=== PATIENT | female | born 1975 | race Caucasian/White ===

== ENCOUNTER 2018-03-04 | Emergency (ER) | payer MEDICAID, SELFPAY ==
[2018-03-04 00:04] VITALS: BP 141/90; PULSE 82; RESP 16; TEMP 36.6; O2SAT 98
--- NOTE | 2018-03-04 00:09 | DI.RAD_ITS ---
SYMPTOM/DIAGNOSIS: PAIN, SOMEONE FELL ON HER RIGHT FOOT: Three views. No acute fracture or dislocation is identified. There is a mild hallux valgus deformity. Mild degenerative changes are seen at the first metatarsal phalangeal joint. Calcaneal spurs are present. No radiopaque foreign bodies are seen in the soft tissues. IMPRESSION: No acute fracture or dislocation. RIGHT ANKLE: Three views. No acute fracture or dislocation is identified. There are mild degenerative changes seen at the ankle. There is an enthesophyte seen at the Achilles insertion of the calcaneus.
--- NOTE | 2018-03-04 00:11 | W.ED.GENAD ---
Discharge Plan Disposition Patient Disposition: HOME Condition: Stable Discharge Details Chief Complaint: Orthopedic Clinical Impression: Right foot sprain, Right ankle sprain Primary Care Provider: Clare Jhaveri ED Provider: Mathew Carrero Home Meds and New Rx's Prescriptions: Continue sertraline 50 MG tablet 50 mg PO DAILY Qty: 30 RF: 1 melatonin 5 MG tablet 5 mg PO HS RF: 0 omeprazole 10 MG capsule,delayed release(DR/EC) 20 mg PO DIRECTED RF: 0 Discharge Instructions Instructions: Ankle Sprain (ED) Discharge Data Discharge Physician: Mathew Carrero Medical Decision Making 42 yo female was at an event in the stands when another person fell on the medial right ankle and foot, did not hit her head or have loc. Based on her exam I suspect contusion vs sprian but will xray to eval for fx/dislocation. She has full plantar and dorsiflexion so doubt tendon injury especially an injury to achilles tendon xray negative on my read, suspect foot and ankle sprain. ADvised f/u with pcp if pain continues this week and advised RICE Differential Diagnosis sprain, strain, contusion, fracture, dislocation Imaging Data Radiologic Study: Attestation: I personally reviewed and interpreted this imaging study as follows: Imaging: X-Ray My impression: no acute findings Radiologic Study #2: Attestation: I personally reviewed and interpreted this imaging study as follows: Imaging: X-Ray My impression: no acute findings HPI General Mode of arrival: ambulatory. Date/Time Provider Initiated Documentation: 03/04/18 00:09. Limitations to Documentation: no limitations. Information obtained by: patient. History of Present Illness 42 year old F presents to the emergency department with the chief complaint of right foot and ankle pain, described as moderate, with intensity rated at 6. Quality is described as aching, and is localized to the right and lower extremity. Patient reports no radiation. Patient started experiencing this hour(s) (1) and it has been constant. No relieving factors improve symptom(s), No exacerbating factors reported . Patient notes no other symptoms.. Patient did receive the following treatments prior to arrival, NSAID Related Data Home Medications Medication Instructions Recorded Confirmed melatonin 5 mg PO HS 11/13/12 03/04/18 omeprazole 20 mg PO DIRECTED 08/10/15 03/04/18 sertraline 50 mg PO DAILY #30 tab-cap 12/26/17 03/04/18 Previous Rx's Medication Instructions Recorded sertraline 50 mg PO DAILY #30 tab-cap 12/26/17 Allergies Allergy/AdvReac Type Severity Reaction Status Date / Time No Known Allergies Allergy Unverified 03/04/18 00:10 General Stated Complaint: Orthopedic SHYAM: 4 Review of Systems Review of Systems All systems reviewed & are unremarkable except as noted in HPI and below Constitutional Denies chills, Denies fever(s) and Denies weakness Eyes Denies loss of vision ENT Denies change in voice Cardiovascular Denies chest pain and Denies dyspnea Respiratory Denies dyspnea Gastrointestinal Denies abdominal pain, Denies nausea and Denies vomiting Genitourinary Denies dysuria Musculoskeletal Denies joint swelling Integumentary/Breasts Denies rash Neurologic Denies loss of vision and Denies weakness Psychiatric Denies depression Endocrine Denies cold intolerance and Denies heat intolerance Allergic/Immunologic Reports urticaria PFSH Family History Mother Typhoid Heart disease Father Heart disease Sister No problems noted. Grandmother Heart disease Medical History Tobacco use disorder (Acute) Increased BMI (body mass index) (Acute 06/19/17) Alcohol abuse, episodic (Acute 06/19/17) Social History Smoking/Tobacco Use Status: Current every day alcohol intake: current alcohol intake frequency: a few times a week substance use type: does not use seatbelt use: always Surgical History section PROCEDURES Female Reproductive History Menstrual control method: progestin IUCD Exam Const General: no acute distress Orientation: alert HENGA Head: normal to inspection Ears: external ears normal General nose exam: external nose normal Mouth: moist mucous membranes Eyes General: appearance normal, both eyes and all related structures Neck Neck: normal visual inspection Resp Effort & Inspection: normal respiratory effort and able to speak in complete sentences Cardio Rate: regular rate Skin General skin exam: no rashes or lesions noted Neuro General: alert and oriented x3 Extrem General: normal capillary refill and other (has pain over medial right ankle and foot. 2+ dp/pt pulses, full plantar and dorsiflexion, intact sensation) Psych Mental Status: mental status grossly normal Course Vital Signs Temperature 36.6 C 03/04/18 00:04 Pulse 82 03/04/18 00:04 Respiratory Rate 16 03/04/18 00:04 Blood Pressure 141/90 H 03/04/18 00:04 Pulse Oximetry 98 03/04/18 00:04 Temperature 36.6 C 03/04/18 00:04 Temperature Source Temporal Artery Scan 03/04/18 00:04 Pulse 82 03/04/18 00:04 Respiratory Rate 16 03/04/18 00:04 Respiratory Effort 03/04/18 00:08 Blood Pressure 141/90 H 03/04/18 00:04 Pulse Oximetry 98 03/04/18 00:04 Oxygen Delivery Method Room Air 03/04/18 00:04 Oxygen Flow Rate 0 03/04/18 00:04 Pain Level 7 03/04/18 00:08
--- NOTE | 2018-03-04 00:19 | ED.GENADUL_ITS ---
Discharge Plan Disposition Patient Disposition: HOME Condition: Stable Discharge Details Chief Complaint: Orthopedic Clinical Impression: Right foot sprain, Right ankle sprain Primary Care Provider: Clare Jhaveri ED Provider: Mathew Carrero Home Meds and New Rx's Prescriptions: Continue sertraline 50 MG tablet 50 mg PO DAILY Qty: 30 RF: 1 melatonin 5 MG tablet 5 mg PO HS RF: 0 omeprazole 10 MG capsule,delayed release(DR/EC) 20 mg PO DIRECTED RF: 0 Discharge Instructions Instructions: Ankle Sprain (ED) Discharge Data Discharge Physician: Mathew Carrero Medical Decision Making 42 yo female was at an event in the stands when another person fell on the medial right ankle and foot, did not hit her head or have loc. Based on her exam I suspect contusion vs sprian but will xray to eval for fx/dislocation. She has full plantar and dorsiflexion so doubt tendon injury especially an injury to achilles tendon xray negative on my read, suspect foot and ankle sprain. ADvised f/u with pcp if pain continues this week and advised RICE Differential Diagnosis sprain, strain, contusion, fracture, dislocation Imaging Data Radiologic Study: Attestation: I personally reviewed and interpreted this imaging study as follows: Imaging: X-Ray My impression: no acute findings Radiologic Study #2: Attestation: I personally reviewed and interpreted this imaging study as follows: Imaging: X-Ray My impression: no acute findings HPI General Mode of arrival: ambulatory . Date/Time Provider Initiated Documentation: 03/04/18 00:09 . Limitations to Documentation: no limitations . Information obtained by: patient . History of Present Illness 42 year old F presents to the emergency department with the chief complaint of right foot and ankle pain, described as moderate, with intensity rated at 6. Quality is described as aching, and is localized to the right and lower extremity. Patient reports no radiation. Patient started experiencing this hour(s) (1) and it has been constant. No relieving factors improve symptom(s ), No exacerbating factors reported . Patient notes no other symptoms.. Patient did receive the following treatments prior to arrival, NSAID Related Data Home Medications Medication Instructions Recorded Confirmed melatonin 5 mg PO HS 11/13/12 03/04/18 omeprazole 20 mg PO DIRECTED 08/10/15 03/04/18 sertraline 50 mg PO DAILY #30 tab-cap 12/26/17 03/04/18 Previous Rx's Medication Instructions Recorded sertraline 50 mg PO DAILY #30 tab-cap 12/26/17 Allergies Allergy/AdvReac Type Severity Reaction Status Date / Time No Known Allergies Allergy Unverified 03/04/18 00:10 General Stated Complaint: Orthopedic SHYAM: 4 Review of Systems Review of Systems All systems reviewed & are unremarkable except as noted in HPI and below Constitutional Denies chills, Denies fever(s) and Denies weakness Eyes Denies loss of vision ENT Denies change in voice Cardiovascular Denies chest pain and Denies dyspnea Respiratory Denies dyspnea Gastrointestinal Denies abdominal pain, Denies nausea and Denies vomiting Genitourinary Denies dysuria Musculoskeletal Denies joint swelling Integumentary/Breasts Denies rash Neurologic Denies loss of vision and Denies weakness Psychiatric Denies depression Endocrine Denies cold intolerance and Denies heat intolerance Allergic/Immunologic Reports urticaria PFSH Family History Mother Typhoid Heart disease Father Heart disease Sister No problems noted. Grandmother Heart disease Medical History Tobacco use disorder (Acute) Increased BMI (body mass index) (Acute 06/19/17) Alcohol abuse, episodic (Acute 06/19/17) Social History Smoking/Tobacco Use Status: Current every day alcohol intake: current alcohol intake frequency: a few times a week substance use type: does not use seatbelt use: always Surgical History section PROCEDURES Female Reproductive History Menstrual control method: progestin IUCD Exam Const General: no acute distress Orientation: alert HENAZ Head: normal to inspection Ears: external ears normal General nose exam: external nose normal Mouth: moist mucous membranes Eyes General: appearance normal, both eyes and all related structures Neck Neck: normal visual inspection Resp Effort & Inspection: normal respiratory effort and able to speak in complete sentences Cardio Rate: regular rate Skin General skin exam: no rashes or lesions noted Neuro General: alert and oriented x3 Extrem General: normal capillary refill and other (has pain over medial right ankle and foot. 2+ dp/pt pulses, full plantar and dorsiflexion, intact sensation) Psych Mental Status: mental status grossly normal Course Vital Signs Temperature 36.6 C 03/04/18 00:04 Pulse 82 03/04/18 00:04 Respiratory Rate 16 03/04/18 00:04 Blood Pressure 141/90 H 03/04/18 00:04 Pulse Oximetry 98 03/04/18 00:04 Temperature 36.6 C 03/04/18 00:04 Temperature Source Temporal Artery Scan 03/04/18 00:04 Pulse 82 03/04/18 00:04 Respiratory Rate 16 03/04/18 00:04 Respiratory Effort 03/04/18 00:08 Blood Pressure 141/90 H 03/04/18 00:04 Pulse Oximetry 98 03/04/18 00:04 Oxygen Delivery Method Room Air 03/04/18 00:04 Oxygen Flow Rate 0 03/04/18 00:04 Pain Level 7 03/04/18 00:08
--- NOTE | 2018-03-04 01:10 | DI.VRAD_ITS ---
EXAM: XR Right Foot Complete, 3 or more Views EXAM DATE/TIME: 03/04/2018 12:24 AM CLINICAL HISTORY: 42 years old, female; Pain; Foot; Right; Additional info: Pain post someone falling on her foot TECHNIQUE: XR Right foot 3 or more views. COMPARISON: No relevant prior studies available. FINDINGS: Bones/joints: There is mild hallux valgus. Calcaneal spurring is present with a distal Achilles enthesophyte. No fracture or subluxation. Soft tissues: Normal. IMPRESSION: No acute osseous findings. Dictated and Authenticated by: Gm De Anda MD. Ordering:JASSI VIEYRA MD
--- NOTE | 2018-03-04 01:11 | DI.VRAD_ITS ---
EXAM: XR Right Ankle Complete, 3 or more Views EXAM DATE/TIME: 03/04/2018 12:24 AM CLINICAL HISTORY: 42 years old, female; Pain; Ankle; Right; Additional info: Pain post someone falling on her foot TECHNIQUE: XR Right ankle 3 or more views. COMPARISON: No relevant prior studies available. FINDINGS: Bones/joints: There is a calcaneal spur and small distal Achilles enthesophyte. Minimal degenerative changes at the tibiotalar joint. No fracture or subluxation. Soft tissues: Small ossific densities in the anterior soft tissues likely represent small vascular calcifications. IMPRESSION: No acute osseous findings. Dictated and Authenticated by: Gm De Anda MD. Ordering:JASSI VIEYRA MD
== END 2018-03-04 01:14 | disposition home or self-care (01) ==
LOC: ER 01:13
PROVIDERS: Emergency Provider Emergency Medicine
DX: S93.601A Unspecified sprain of right foot, initial encounter (principal); S93.401A Sprain of unspecified ligament of right ankle, initial encounter; W50.0XXA Accidental hit or strike by another person, initial encounter
CPT/HCPCS: 99284; 73610; 73630; 99283

== ENCOUNTER 2018-10-04 23:13 | Emergency (ER) | payer SELFPAY ==
[2018-10-04 23:15] VITALS: BP 145/79; PULSE 80; RESP 20; TEMP 37.1; O2SAT 97
--- NOTE | 2018-10-04 23:24 | W.ED.GENAD ---
Discharge Plan Disposition Patient Disposition: HOME Condition: Good Discharge Details Chief Complaint: Sorethroat Clinical Impression: Acute bacterial sinusitis Primary Care Provider: Clare Jhaveri ED Provider: Toan Serrato Meds and New Rx's Prescriptions: New amoxicillin-pot clavulanate 875-125 mg tablet 1 tab PO BID Qty: 14 RF: 0 fluticasone propionate [Flonase Allergy Relief] 50 mcg/actuation spray,suspension 1 spray JOZEF DAILY Qty: 9.9 RF: 0 Continued sertraline 50 mg tablet 50 mg PO DAILY Qty: 30 RF: 10 melatonin 5 MG tablet 5 mg PO HS RF: 0 omeprazole 10 MG capsule,delayed release(DR/EC) 20 mg PO DAILY RF: 0 acetaminophen 500 mg Tablet 1,000 mg PO PRN PRNRF: 0 ibuprofen [Advil] 200 mg Tablet 600 mg PO QID PRNRF: 0 Discharge Instructions Instructions: Sinusitis (ED) Additional Instructions: Drink plenty of fluids to stay hydrated. Use ibuprofen to help with your discomfort. Take antibiotic as directed for a week. Use steroid nose drops as directed for a week. Follow-up with primary care next week. Return to ED for high fevers, mental status changes, headaches, difficulty breathing, inability to swallow. Referrals: Clare Jhaveri, [facility] [Primary Care Provider] - Medical Decision Making Given the patient's prolonged URI symptoms with an acute change in the last couple of days, she has probably developed a bacterial sinusitis. We will start her on Augmentin twice a day. We will give Flonase nasal spray as well. Use ibuprofen for discomfort. Stay hydrated. Follow-up with primary care next week if not better. Return to the emergency room for increasing pain, severe headache, mental status change, difficulty breathing, inability to follow. HPI General Mode of arrival: ambulatory. Date/Time Provider Initiated Documentation: 10/04/18 23:23. Limitations to Documentation: no limitations. Information obtained by: patient. HPI Narrative: Patient presents to ED with increasing facial pain, sore throat, ear pain, swollen nodes. She reports being ill for at least a month with congestion and cough. She does not think the cough is a whole lot different than her chronic smoker's cough. The congestion and nasal drainage has been. She has had no fever. She has no shortness of breath. In the last few days she has developed bilateral ear pain, increased facial pain and sinus congestion with sore throat and swollen lymph nodes. She has been using Tylenol and Motrin without significant relief. She comes in [facility] for evaluation. Related Data Home Medications Medication Instructions Recorded Confirmed melatonin 5 mg PO HS 11/13/12 10/04/18 omeprazole 20 mg PO DAILY 08/10/15 10/04/18 sertraline 50 mg tablet 50 mg PO DAILY #30 tab-cap 03/05/18 10/04/18 acetaminophen 1,000 mg PO PRN PRN 10/04/18 10/04/18 amoxicillin-pot clavulanate 1 tab PO BID #14 tab 10/04/18 fluticasone propionate [Flonase 1 spray JOZEF DAILY #9.9 gm 10/04/18 Allergy Relief] ibuprofen [Advil] 600 mg PO QID PRN 10/04/18 10/04/18 Previous Rx's Medication Instructions Recorded sertraline 50 mg tablet 50 mg PO DAILY #30 tab-cap 03/05/18 amoxicillin-pot clavulanate 1 tab PO BID #14 tab 10/04/18 fluticasone propionate [Flonase 1 spray JOZEF DAILY #9.9 gm 10/04/18 Allergy Relief] Allergies Allergy/AdvReac Type Severity Reaction Status Date / Time No Known Allergies Allergy Unverified 03/04/18 00:10 General Stated Complaint: Sorethroat SHYAM: 4 Review of Systems Review of Systems As documented in HPI otherwise negative as below. Const: no fever, chills, weakness Resp: positive cough; no SOB, pleuritic pain CV: no CP, diaphoresis, edema, syncope GI: no abdominal pain, nausea, vomiting, diarrhea Neuro: no headache, numbness, focal weakness, confusion [facility] Medical History Tobacco use disorder (Chronic) Increased BMI (body mass index) (Chronic 06/19/17) Alcohol abuse, episodic (Chronic 06/19/17) Anxiety (Chronic) Surgical History PROCEDURES (Chronic) section (Inactive) Social History Smoking/Tobacco Use Status: Current every day Tobacco Type: cigarettes Tobacco: How many years used: 25 Alcohol Intake: current Alcohol Intake frequency: a few times a week Alcohol type: beer Drug use: Daily Substance use type: marijuana Seatbelt use: always Do you feel safe in your relationship?: Yes Female Reproductive History Menstrual control method: progestin IUCD History History 6 Para Hx # Term Pregnancies 5 Multiple births Hx # Pregnancies Ectopic pregnancies AB induced Hx Number of Living Children AB spontaneous Exam Narrative Exam Narrative: Vitals: With elevated blood pressure but otherwise normal vitals. Const: Obese female in NAD. HEENT: NC/AT. Bilateral maxillary sinus tenderness. TMs normal bilaterally. Oropharynx with some erythema posteriorly. No exudate or ulcers. No swelling. Eyes: Normal conjunctiva and sclera. Neck: Supple. Trachea midline. Significant tender anterior cervical adenopathy per Lungs: Normal respiratory effort. Lungs are clear. Neuro: A+O x 3. CN grossly in tact. Good strength and no focal deficit. Course Vital Signs Temperature 98.8 F 10/04/18 23:15 Pulse 80 10/04/18 23:15 Respiratory Rate 20 10/04/18 23:15 Blood Pressure 145/79 H 10/04/18 23:15 Pulse Oximetry 97 10/04/18 23:15 Temperature 98.8 F 10/04/18 23:15 Temperature Source Skin 10/04/18 23:15 Pulse 80 10/04/18 23:15 Respiratory Rate 20 10/04/18 23:15 Respiratory Effort Non-Labored 10/04/18 23:20 Blood Pressure 145/79 H 10/04/18 23:15 Pulse Oximetry 97 10/04/18 23:15 Oxygen Delivery Method Room Air 10/04/18 23:15 Oxygen Flow Rate 0 10/04/18 23:15 Pain Level 4 10/04/18 23:15
--- NOTE | 2018-10-04 23:27 | ED.GENADUL_ITS ---
Discharge Plan Disposition Patient Disposition: HOME Condition: Good Discharge Details Chief Complaint: Sorethroat Clinical Impression: Acute bacterial sinusitis Primary Care Provider: Clare Jhaveri ED Provider: Toan Serrato Meds and New Rx's Prescriptions: New amoxicillin-pot clavulanate 875-125 mg tablet 1 tab PO BID Qty: 14 RF: 0 fluticasone propionate [Flonase Allergy Relief] 50 mcg/actuation spray,suspension 1 spray JOZEF DAILY Qty: 9.9 RF: 0 Continued sertraline 50 mg tablet 50 mg PO DAILY Qty: 30 RF: 10 melatonin 5 MG tablet 5 mg PO HS RF: 0 omeprazole 10 MG capsule,delayed release(DR/EC) 20 mg PO DAILY RF: 0 acetaminophen 500 mg Tablet 1,000 mg PO PRN PRNRF: 0 ibuprofen [Advil] 200 mg Tablet 600 mg PO QID PRNRF: 0 Discharge Instructions Instructions: Sinusitis (ED) Additional Instructions: Drink plenty of fluids to stay hydrated. Use ibuprofen to help with your discomfort. Take antibiotic as directed for a week. Use steroid nose drops as directed for a week. Follow-up with primary care next week. Return to ED for high fevers, mental status changes, headaches, difficulty breathing, inability to swallow. Referrals: Clare Jhaveri, [facility] [Primary Care Provider] - Medical Decision Making Given the patient's prolonged URI symptoms with an acute change in the last couple of days, she has probably developed a bacterial sinusitis. We will start her on Augmentin twice a day. We will give Flonase nasal spray as well. Use ibuprofen for discomfort. Stay hydrated. Follow-up with primary care next week if not better. Return to the emergency room for increasing pain, severe headache, mental status change, difficulty breathing, inability to follow. HPI General Mode of arrival: ambulatory . Date/Time Provider Initiated Documentation: 10/04/18 23:23 . Limitations to Documentation: no limitations . Information obtained by: patient . HPI Narrative: Patient presents to ED with increasing facial pain, sore throat, ear pain, swollen nodes. She reports being ill for at least a month with congestion and cough. She does not think the cough is a whole lot different than her chronic smoker's cough. The congestion and nasal drainage has been. She has had no fever. She has no shortness of breath. In the last few days she has developed bilateral ear pain, increased facial pain and sinus congestion with sore throat and swollen lymph nodes. She has been using Tylenol and Motrin without signific ant relief. She comes in [facility] for evaluation. Related Data Home Medications Medication Instructions Recorded Confirmed melatonin 5 mg PO HS 11/13/12 10/04/18 omeprazole 20 mg PO DAILY 08/10/15 10/04/18 sertraline 50 mg tablet 50 mg PO DAILY #30 tab-cap 03/05/18 10/04/18 acetaminophen 1,000 mg PO PRN PRN 10/04/18 10/04/18 amoxicillin-pot clavulanate 1 tab PO BID #14 tab 10/04/18 fluticasone propionate [Flonase 1 spray JOZEF DAILY #9.9 gm 10/04/18 Allergy Relief] ibuprofen [Advil] 600 mg PO QID PRN 10/04/18 10/04/18 Previous Rx's Medication Instructions Recorded sertraline 50 mg tablet 50 mg PO DAILY #30 tab-cap 03/05/18 amoxicillin-pot clavulanate 1 tab PO BID #14 tab 10/04/18 fluticasone propionate [Flonase 1 spray JOZEF DAILY #9.9 gm 10/04/18 Allergy Relief] Allergies Allergy/AdvReac Type Severity Reaction Status Date / Time No Known Allergies Allergy Unverified 03/04/18 00:10 General Stated Complaint: Sorethroat SHYAM: 4 Review of Systems Review of Systems As documented in HPI otherwise negative as below. Const: no fever, chills, weakness Resp: positive cough; no SOB, pleuritic pain CV: no CP, diaphoresis, edema, syncope GI: no abdominal pain, nausea, vomiting, diarrhea Neuro: no headache, numbness, focal weakness, confusion REPLACED BY [facility] Medical History Tobacco use disorder (Chronic) Increased BMI (body mass index) (Chronic 06/19/17) Alcohol abuse, episodic (Chronic 06/19/17) Anxiety (Chronic) Surgical History PROCEDURES (Chronic) section (Inactive) Social History Smoking/Tobacco Use Status: Current every day Tobacco Type: cigarettes Tobacco: How many years used: 25 Alcohol Intake: current Alcohol Intake frequency: a few times a week Alcohol type: beer Drug use: Daily Substance use type: marijuana Seatbelt use: always Do you feel safe in your relationship?: Yes Female Reproductive History Menstrual control method: progestin IUCD History History 6 Para Hx # Term Pregnancies 5 Multiple births Hx # Pregnancies Ectopic pregnancies AB induced Hx Number of Living Children AB spontaneous Exam Narrative Exam Narrative: Vitals: With elevated blood pressure but otherwise normal vitals. Const: Obese female in NAD. HEENT: NC/AT. Bilateral maxillary sinus tenderness. TMs normal bilaterally. Oropharynx with some erythema posteriorly. No exudate or ulcers. No swelling. Eyes: Normal conjunctiva and sclera. Neck: Supple. Trachea midline. Significant tender anterior cervical adenopathy per Lungs: Normal respiratory effort. Lungs are clear. Neuro: A+O x 3. CN grossly in tact. Good strength and no focal deficit. Course Vital Signs Temperature 98.8 F 10/04/18 23:15 Pulse 80 10/04/18 23:15 Respiratory Rate 20 10/04/18 23:15 Blood Pressure 145/79 H 10/04/18 23:15 Pulse Oximetry 97 10/04/18 23:15 Temperature 98.8 F 10/04/18 23:15 Temperature Source Skin 10/04/18 23:15 Pulse 80 10/04/18 23:15 Respiratory Rate 20 10/04/18 23:15 Respiratory Effort Non-Labored 10/04/18 23:20 Blood Pressure 145/79 H 10/04/18 23:15 Pulse Oximetry 97 10/04/18 23:15 Oxygen Delivery Method Room Air 10/04/18 23:15 Oxygen Flow Rate 0 10/04/18 23:15 Pain Level 4 10/04/18 23:15
[2018-10-04] MEDS: Amoxicillin 875/Clav. 125 TAB PO (23:35)
== END 2018-10-04 23:40 | disposition home or self-care (01) ==
PROVIDERS: Emergency Provider Emergency Medicine
DX: J01.90 Acute sinusitis, unspecified (principal)
CPT/HCPCS: 99283

== ENCOUNTER 2019-04-22 18:38 | Emergency (ER) | payer SELFPAY ==
[2019-04-22 18:46] VITALS: BP 157/76; PULSE 83; RESP 16; TEMP 36.6; O2SAT 100
--- NOTE | 2019-04-22 19:01 | W.ED.GENAD ---
Discharge Plan Disposition Patient Disposition: HOME Condition: Stable Discharge Details Chief Complaint: RespSymp Clinical Impression: Acute bronchitis Primary Care Provider: Clare Jhaveri ED Provider: Cayden Patrick Home Meds and New Rx's Prescriptions: Continued sertraline 50 mg tablet 50 mg PO DAILY Qty: 30 RF: 10 melatonin 5 MG tablet 5 mg PO HS RF: 0 omeprazole 10 MG capsule,delayed release(DR/EC) 20 mg PO DAILY RF: 0 acetaminophen 500 mg Tablet 1,000 mg PO PRN PRNRF: 0 ibuprofen [Advil] 200 mg Tablet 600 mg PO QID PRNRF: 0 fluticasone propionate [Flonase Allergy Relief] 50 mcg/actuation spray,suspension 1 spray JOZEF DAILY Qty: 9.9 RF: 0 pseudoephedrine HCl [Sudafed 12 Hour] 120 mg Tablet Extended Release PO RF: 0 guaifenesin [Mucinex] 600 mg Tablet Extended Release 12hr 600 mg PO PRN PRNRF: 0 Discharge Instructions Instructions: Acute Bronchitis (ED) Additional Instructions: Small, frequent sips of fluids to maintain hydration. Take antibiotics as prescribed. May use the provided Robitussin tonight to decrease cough and aid with sleep. Fill prescriptions tomorrow. Continue your regular medications Return to the emergency department for worsening or any other acute concern Medical Decision Making 43-year-old female presents with cough, congestion, sinus pain and pressure over 5 to 6 days time. She has had a few episodes of loose stool. She continues to smoke. She does not have rhonchi. She is oxygenating normally. I do feel she has a bronchitis and sinusitis. Offered treatment with azithromycin which she states has worked well in the past. She will continue to decrease smoking. She is stable and appropriate for discharge to home. HPI General Mode of arrival: ambulatory. Date/Time Provider Initiated Documentation: 04/22/19 18:40. Limitations to Documentation: no limitations. Information obtained by: patient. History of Present Illness 43 year old F presents to the emergency department with the chief complaint of Cough, congestion, sinus pressure, described as moderate, Quality is described as constant, and is localized to the chest. Patient reports no radiation. Patient started experiencing this day(s) and it has been constant. No relieving factors improve symptom(s), No exacerbating factors reported . Patient notes cough, fever/chills, loss of appetite and malaise; denies confusion and shortness of breath. Patient did receive the following treatments prior to arrival, none Related Data Home Medications Medication Instructions Recorded Confirmed melatonin 5 mg PO HS 11/13/12 04/22/19 omeprazole 20 mg PO DAILY 08/10/15 04/22/19 acetaminophen 1,000 mg PO PRN PRN 10/04/18 04/22/19 fluticasone propionate [Flonase 1 spray JOZEF DAILY #9.9 gm 10/04/18 04/22/19 Allergy Relief] ibuprofen [Advil] 600 mg PO QID PRN 10/04/18 04/22/19 sertraline 50 mg tablet 50 mg PO DAILY #30 tab-cap 03/30/19 04/22/19 guaifenesin [Mucinex] 600 mg PO PRN PRN 04/22/19 04/22/19 pseudoephedrine HCl [Sudafed 12 mg PO 04/22/19 Hour] Previous Rx's Medication Instructions Recorded fluticasone propionate [Flonase 1 spray JOZEF DAILY #9.9 gm 10/04/18 Allergy Relief] sertraline 50 mg tablet 50 mg PO DAILY #30 tab-cap 03/30/19 Allergies Allergy/AdvReac Type Severity Reaction Status Date / Time No Known Allergies Allergy Unverified 03/04/18 00:10 General Stated Complaint: RespSymp SHYAM: 3 Review of Systems Narrative: 6 systems reviewed and otherwise negative. Continues to smoke 30 cigarettes/day [facility] Medical History Alcohol abuse, episodic (Chronic 06/19/17) Anxiety (Chronic) Increased BMI (body mass index) (Chronic 06/19/17) Tobacco use disorder (Chronic) Family History Mother Typhoid Heart disease Father Heart disease Sister No problems noted. Grandmother Heart disease Social History Smoking/Tobacco Use Status: Current every day Tobacco Type: cigarettes Tobacco: How many years used: 25 Alcohol Intake: current Alcohol Intake frequency: a few times a week Alcohol type: beer Drug use: Daily Substance use type: marijuana Seatbelt use: always Do you feel safe in your relationship?: Yes Female Reproductive History Menstrual control method: progestin IUCD History History 6 Para Hx # Term Pregnancies 5 Multiple births Hx # Pregnancies Ectopic pregnancies AB induced Hx Number of Living Children AB spontaneous Exam Narrative Exam Narrative: GEN: awake, alert, oriented 3. Pleasant, well groomed, interactive. HEAD: Normocephalic, atraumatic ENT: Mucous membranes moist, oropharynx unremarkable, mild anterior maxillary tenderness to percussion, TMs clear bilaterally but with effusion present, external ear exam unremarkable EYES: PERRL, EOMI NECK: Full ROM, no SIRENA, no menigismus CHEST/RESP: Nontender, clear to auscultation bilateral, no wheeze/rhonchi/rales, cough noted CARDIOVASCULAR: RRR, no murmur, rub tristan. 2+ Rad pulse bilateral ABDOMEN: Soft, nontender, no mass. +Bowel sounds EXT: Full ROM, no edema, no rash Neuro: Grossly normal neurologic exam, conversant, interactive. Psych: Speech fluent, thoughts congruent, affect normal Course Vital Signs Vital signs: Vital Signs Temperature 36.6 C 04/22/19 18:46 Pulse 83 04/22/19 18:46 Respiratory Rate 16 04/22/19 18:46 Blood Pressure 157/76 H 04/22/19 18:46 Pulse Oximetry 100 04/22/19 18:46 Temperature 36.6 C 04/22/19 18:46 Temperature Source Temporal Artery Scan 04/22/19 18:46 Pulse 83 04/22/19 18:46 Respiratory Rate 16 04/22/19 18:46 Respiratory Effort 04/22/19 18:55 Blood Pressure 157/76 H 04/22/19 18:46 Blood Pressure Position Sitting 04/22/19 18:46 Pulse Oximetry 100 04/22/19 18:46 Oxygen Delivery Method Room Air 04/22/19 18:46 Oxygen Flow Rate 0 04/22/19 18:46 Pain Level 4 04/22/19 18:46 Comment 04/22/19 18:46
[2019-04-22] MEDS: guaiFENesin/D-METHORPHAN HB 5 ML CUP 10 ML PO (19:12)
[2019-04-22] MEDS: Azithromycin 250 MG TAB 500 MG PO (19:12)
== END 2019-04-22 19:30 | disposition home or self-care (01) ==
LOC: ER 19:10
PROVIDERS: Emergency Provider Emergency Medicine
DX: J20.9 Acute bronchitis, unspecified (principal); F17.210 Nicotine dependence, cigarettes, uncomplicated
CPT/HCPCS: 99283

== ENCOUNTER 2019-06-12 22:47 | Emergency (ER) | payer SELFPAY ==
[2019-06-12 22:50] VITALS: BP 167/80; PULSE 87; RESP 16; TEMP 36.6; O2SAT 98
--- NOTE | 2019-06-12 23:11 | ED.GENADUL_ITS ---
Discharge Plan Disposition Patient Disposition: HOME Condition: Good Discharge Details Chief Complaint: Laceration Clinical Impression: Laceration, Laceration of left thumb Primary Care Provider: Clare Jhaveri ED Provider: Vipin Eckert Home Meds and New Rx's Prescriptions: No Action sertraline 50 mg tablet 50 mg PO DAILY Qty: 30 RF: 10 melatonin 5 MG tablet 5 mg PO HS RF: 0 omeprazole 10 MG capsule,delayed release(DR/EC) 20 mg PO DAILY RF: 0 acetaminophen 500 mg Tablet 1,000 mg PO PRN PRNRF: 0 ibuprofen [Advil] 200 mg Tablet 600 mg PO QID PRNRF: 0 fluticasone propionate [Flonase Allergy Relief] 50 mcg/actuation spray,suspe nsion 1 spray JOZEF DAILY Qty: 9.9 RF: 0 Discharge Instructions Instructions: Laceration (ED) Additional Instructions: Please leave the dressing on for 24 hours, then you may remove and begin cleaning the wound at least twice a day with soap and water. Continue to apply antibiotic ointment. Do not directly soak the area. Watch for any signs of infection and return if any increasing redness, swelling, pain, drainage. Please return in 7 to 10 days to have the sutures removed. If you notice any worsening of your symptoms, or any new symptoms such as vomiting, diarrhea, fever, chills, shortness of breath, chest pain, numbness, weakness, or fainting , please return immediately to the emergency department for reevaluation. Please follow up with your primary care provider as soon as possible for reassessment and reevaluation. As always, it was a pleasure participating in your medical care today. Referrals: Clare Jhaveri, CONTINUOUS TOWEL ROLLER [Primary Care Provider] - Medical Decision Making Pleasant 44-year-old female who is right-hand dominant who presents for a small laceration to the distal tip of her left thumb that occurred with a clean knife less than 1 hour ago. Tetanus was updated 2 years ago. Physical exam demonstrates an intact thumb, no evidence of tendon disruption, normal strength, normal sensation. The area was cleaned and irrigated with copious amounts of normal saline chlorhexidine. 5 simple interrupted sutures were then placed using 5-0 Ethilon, she tolerated this well. 3 small tabs of Dermabond was placed on the knots. Patient tolerated this well. Discussed red flags which to return, as well as customary instructions for sutures. I have extensively reviewed the treatment plan and discharge instructions with the patient and their family. I have addressed all patient concerns at this time. The patient and family was made aware of what symptoms to monitor for that would warrant a return to the emergency department. Discussed the plan with the patient and family, they demonstrate verbal understanding and agreement with our assessment and plan at this time. HPI General Date/Time Provider Initiated Documentation: 06/12/19 22:50 . HPI Narrative: This is a pleasant 44-year-old female who is right-hand dominant whose tetanus was updated less than 2 years ago who presents today for evaluation of left thumb laceration. She was holding a knife when it slipped and stabbed the distal aspect of her left thumb. It was a clean knife, she immediately pulled it out bandaged it and came to the ER. She denies any numbness or tingling. She is able to move it well without difficulty. She denies any blood thinner use. She has no other complaints at this time. She denies any other modifying factors. Related Data Home Medications Medication Instructions Recorded Confirmed melatonin 5 mg PO HS 11/13/12 06/12/19 omeprazole 20 mg PO DAILY 08/10/15 06/12/19 acetaminophen 1,000 mg PO PRN PRN 10/04/18 04/22/19 fluticasone propionate [Flonase 1 spray JOZEF DAILY #9.9 gm 10/04/18 04/22/19 Allergy Relief] ibuprofen [Advil] 600 mg PO QID PRN 10/04/18 04/22/19 sertraline 50 mg tablet 50 mg PO DAILY #30 tab-cap 03/30/19 06/12/19 Previous Rx's Medication Instructions Recorded fluticasone propionate [Flonase 1 spray JOZEF DAILY #9.9 gm 10/04/18 Allergy Relief] sertraline 50 mg tablet 50 mg PO DAILY #30 tab-cap 03/30/19 Allergies Allergy/AdvReac Type Severity Reaction Status Date / Time No Known Allergies Allergy Unverified 06/12/19 22:59 General Stated Complaint: Laceration SHYAM: 3 Review of Systems All systems reviewed & are unremarkable except as noted in HPI and below PFSH Social History Smoking/Tobacco Use Status: Current every day Tobacco Type: cigarettes Tobacco: How many years used: 25 Alcohol Intake: current Alcohol Intake frequency: a few times a week Alcohol type: beer Drug use: Daily Substance use type: marijuana Seatbelt use: always Do you feel safe in your relationship?: Yes Female Reproductive History Menstrual control method: progestin IUCD History History 6 Para Hx # Term Pregnancies 5 Multiple births Hx # Pregnancies Ectopic pregnancies AB induced Hx Number of Living Children AB spontaneous Exam Narrative Exam Narrative: 1.Const: Well-nourished, Well-developed, appearing stated age 2.Eyes: PERRL, no conjunctival injection, and symmetrical lids. 3.ENT: Atraumatic external nose and ears. Moist MM. Neck: Symmetric, trachea midline, No thyromegaly. 4.CVS: +S1/S2, No murmurs or gallops. Peripheral pulses 2+ and equal in all extremities. Brisk capillary refill in all extremities. 5.RESP: Unlabored respiratory effort. Clear to auscultation bilaterally. No wheezes rales or rhonchi 6.GI: Soft, Nontender/Nondistended, No hepatosplenomegaly. No guarding or rebound. 7.MSK: Normocephalic, No cyanosis or clubbing, Normal movement of all extremities. Left thumb demonstrates good sensation throughout, intact two- point discrimination, normal movement for flexion and extension, brisk capillary refill. Please see skin for laceration description. 8.Skin: Warm, Dry. There is a 1 cm laceration to the pulp of the distal tip of the left thumb. No evidence of deep tendon involvement. No decrease in strength. Mild oozing of blood. 9.Neuro: director of optimization II-XII grossly intact. Sensation grossly intact, no focal neurologic deficits. 10.Psych: (AAO) x3. Appropriate mood and affect Course Vital Signs Vital signs: Vital Signs Temperature 36.6 C 06/12/19 22:50 Pulse 87 06/12/19 22:50 Respiratory Rate 16 06/12/19 22:50 Blood Pressure 167/80 H 06/12/19 22:50 Pulse Oximetry 98 06/12/19 22:50 Temperature 36.6 C 06/12/19 22:50 Temperature Source Temporal Artery Scan 06/12/19 22:50 Pulse 87 01/01/20 22:50 Respiratory Rate 16 06/12/19 22:50 Blood Pressure 167/80 H 06/12/19 22:50 Blood Pressure Position Supine 06/12/19 22:50 Pulse Oximetry 98 06/12/19 22:50 Oxygen Delivery Method Room Air 06/12/19 22:50 Oxygen Flow Rate 0 06/12/19 22:50 Procedures Laceration Laceration 1: Site: hand (left thumb) Side (If applicable): left Size (cm): 1 Description: linear Depth: simple, single layer Local Anesthetic: Lidocaine 1% Amount of anesthesia used (mL): 3 Pre-repair: wound explored, irrigated extensively and deep structures intact Skin layer closed with: nylon Size (cm): 5-0 Number of sutures: 3 Technique: simple, interrupted
== END 2019-06-12 23:15 | disposition home or self-care (01) ==
PROVIDERS: Emergency Provider Student in an Organized Health Care Education/Training Program
DX: S61.012A Laceration without foreign body of left thumb without damage to nail, initial encounter (principal); W26.0XXA Contact with knife, initial encounter
CPT/HCPCS: 12001; 99282

== ENCOUNTER 2020-01-07 15:49 | Emergency (ER) | payer SELFPAY ==
[2020-01-07] VITALS (24 sets, daily range): BP systolic 142–165; BP diastolic 66–83; PULSE 60–104; RESP 14–33; TEMP 36.8; O2SAT 96–100
--- NOTE | 2020-01-07 16:00 | RT.EKG_ITS ---
APPROVED REPORT Exam: Resting ECG Patient Location: E HR:78 bpm ECG Measurements Heart Rate 78 AXIS UT 165 P 25 QRSd 78 QRS 2 QT 390 T 52 QTc 445 <Conclusion> Sinus rhythm...normal P axis, V-rate 60- 99
[2020-01-07] MEDS: Aspirin 81 MG CHEW 324 MG CH (16:22)
--- NOTE | 2020-01-07 16:23 | ED.GENADUL_ITS ---
Discharge Plan Disposition Patient Disposition: HOME Condition: Improving Discharge Details Chief Complaint: Chest Pain Clinical Impression: Chest pain Primary Care Provider: Clare Jhaveri ED Provider: Lexy Mckinnon Home Meds and New Rx's Prescriptions: Continued sertraline 50 mg tablet 50 mg PO DAILY Qty: 30 RF: 10 melatonin 5 MG tablet 5 mg PO HS RF: 0 omeprazole 10 MG capsule,delayed release(DR/EC) 20 mg PO DAILY RF: 0 acetaminophen 500 mg Tablet 1,000 mg PO PRN PRNRF: 0 ibuprofen [Advil] 200 mg Tablet 600 mg PO QID PRNRF: 0 magnesium 250 mg Tablet 750 mg PO DAILY RF: 0 Discharge Instructions Instructions: Chest Pain (ED), How to Stop Smoking (ED) Additional Instructions: Begin taking a chewable baby aspirin 81 mg daily. I encourage you to cut back or quit smoking if possible. Follow up with primary care provider in 3-5 days. Return to ED sooner if any worsening or concerns. Increase oral fluids. Return immediately to the emergency room for any increase or return of chest pain, shortness of breath or any concerns. Referrals: Clare Jhaveri, [employer] OPERATIONS INTERN [Primary Care Provider] - Discharge Data Discharge Date/Time-TO BE ENTERED AT DEPARTURE: 01/07/20 18:03 Medical Decision Making 44-year-old female presents to the ER with midsternal chest pressure which began this morning after awakening. She states it did not wake her up out of sleep. Denies anything making it better or worse. No nausea vomiting diarrhea or constipation. She does state that she has some abdominal bloating. Denies any fever or chills. She does have a slight cough and is a smoker. She denies any past cardiac history but has not seen a primary doctor in a while. She reports her mother of cancer had a her first heart attack at age 55 and father had a heart attack at 65. She denies any recent long trips or swelling in her lower extremities. EKG was reviewed by Luz Aldana MD ER attending, old EKG available for review no significant change. Cardiac work-up ordered including CBC, CMP, d-dimer, serial troponins x2, 2 view chest x-ray. Imaging protocol: XR of the chest Views: 2 views. COMPARISON: No relevant prior studies available. FINDINGS: Lungs: Clear lungs. Pleural space: No pneumothorax. No sizable pleural effusion. Heart/Mediastinum: No cardiomegaly. Bones/joints: Unremarkable. IMPRESSION: Clear lungs. Thank you for allowing us to participate in the care of your patient. Dictated and Authenticated by: Vin Fisher MD 01/07/2020 5:30 PM Eastern Time ([place] & [place]) 1746: At this time work-up is largely benign CBC, d-dimer is 367, CMP shows largely no abnormalities of her anion gap 12.1 which is slightly elevated, glucose 124. Second troponin at this time is pending scheduled for 190. 180: Patient reevaluation, she states 0 out of 10 chest pressure at this time. Work-up is largely within normal limits, patient is mildly hypertensive at 142/66. Discussed differential diagnoses with patient and strict return instructions, verbalized understanding. Discussed taking baby aspirin every day and smoking cessation, verbalized understanding. Encourage close follow-up with PCP to have lipids and cholesterol and blood pressure checked. Will place patient on cardiology and PCP follow-up list for care management. HPI General Mode of arrival: ambulatory . Date/Time Provider Initiated Documentation: 01/07/20 16:05 . Limitations to Documentation: no limitations . Information obtained by: patient . History of Present Illness Patient notes ch est pain and cough; denies diaphoresis, fever/chills, loss of appetite, nausea/vomiting, shortness of breath, syncope and weakness. Patient did receive the following treatments prior to arrival, none HPI Narrative: 44-year-old female presents to the ER with midsternal chest pressure which began this morning after awakening. She states it did not wake her up out of sleep. Denies anything making it better or worse. No nausea vomiting diarrhea or constipation. She does state that she has some abdominal bloating. Denies any fever or chills. She does have a slight cough and is a smoker. She denies any past cardiac history but has not seen a primary doctor in a while. She reports her mother of cancer had a her first heart attack at age 55 and father had a heart attack at 65. She denies any recent long trips or swelling in her lower extremities. Related Data Home Medications Medication Instructions Recorded Confirmed melatonin 5 mg PO HS 11/13/12 01/07/20 omeprazole 20 mg PO DAILY 08/10/15 01/07/20 acetaminophen 1,000 mg PO PRN PRN 10/04/18 01/07/20 ibuprofen [Advil] 600 mg PO QID PRN 10/04/18 01/07/20 sertraline 50 mg tablet 50 mg PO DAILY #30 tab-cap 03/30/19 01/07/20 magnesium 750 mg PO DAILY 01/07/20 01/07/20 Previous Rx's Medication Instructions Recorded sertraline 50 mg tablet 50 mg PO DAILY #30 tab-cap 03/30/19 Allergies Allergy/AdvReac Type Severity Reaction Status Date / Time No Known Allergies Allergy Unverified 01/07/20 16:19 General Stated Complaint: Chest Pain SHYAM: 2 Review of Systems Narrative: Constitutional: Negative for weight loss, alert and oriented, well groomed, obese body habitus, appears comfortable. HEENT: Denies trauma, headaches, blurry vision, nasal discharge, sore throat, trouble swallowing. Chest: Denies palpitations, irregular rhythm, hypertension. Positive midste rnal chest pressure. No radiation. Respiratory: Denies Shortness of breath, hemoptysis. GI: Denies abdominal pain, nausea, vomiting, diarrhea, constipation. Reports abdominal bloating. : Denies dysuria, hematuria, flank pain, rectal bleeding. Neuro: Denies dizziness, blurry vision, weakness, syncope, headache or facial numbness. Hematologic: Denies easy bruising, intolerance to heat or cold, hair loss. [facility] Medical History Alcohol abuse, episodic (Chronic 06/19/17) Anxiety (Chronic) Increased BMI (body mass index) (Chronic 06/19/17) Tobacco use disorder (Chronic) Surgical History section (Inactive) EMERGENT PROCEDURES (Chronic) INSERTION OF IUD Family History Mother Typhoid Heart disease Father Heart disease Sister No problems noted. Grandmother Heart disease Social History Smoking/Tobacco Use Status: Current every day Tobacco Type: cigarettes Tobacco: How many years used: 25 Alcohol Intake: current Alcohol Intake frequency: a few times a week Alcohol type: beer Drug use: Daily Substance use type: marijuana Seatbelt use: always Do you feel safe at home: Yes Do you feel safe in your relationship?: Yes Female Reproductive History Menstrual control method: progestin IUCD History History 6 Para Hx # Term Pregnancies 5 Multiple births Hx # Pregnancies Ectopic pregnancies AB induced Hx Number of Living Children AB spontaneous Exam Narrative Exam Narrative: Constitutional: Alert and oriented x3. Appears stated age. Obese body habitus. Head: Normocephalic, no trauma. Eyes: Pupils PERRLA, Red reflex noted, EOM's intact. Eyelids symmetrical without lesions, discharge, or swelling. ENT: Bilateral TM's WNL, External ear normal to inspection, no mastoid TTP, swelling, or erythema, Nasal turbinates WNL, no nasal discharge. Normal dentition, Posterior pharynx WNL, no exudate. Chest: RRR, Normal S1, S2, distal pulses intact. No gallops, or rubs Resp: Lungs clear to auscultation bilaterally, no wheezes, rales, or rhonchi. Abdomen: Soft, nondistended, nontender palpation, normoactive bowel sounds all 4 quadrants. Musculoskeletal: Normal gait, 5/5 strength to all four extremities. No bilateral lower extremity pitting edema. Skin: No suspicious rashes or lesions. Capillary refill less than 2 sec. Neurologic: Cranial nerves II-XII intact. Alert and oriented x 3. DTR's intact. Hematologic/Lymphatic: No ecchymosis, no lymphadenopathy. Course Vital Signs Vital signs: Vital Signs Temperature 36.8 C 01/07/20 16:00 Pulse 87 01/07/20 16:00 Respiratory Rate 20 01/07/20 16:00 Blood Pressure 165/83 H 01/07/20 16:00 Pulse Oximetry 99 01/07/20 16:00 Temperature 36.8 C 01/07/20 16:00 Temperature Source Temporal Artery Scan 01/07/20 16:00 Pulse 87 01/07/20 16:00 Respiratory Rate 18 01/07/20 16:12 Respiratory Effort 01/07/20 16:12 Respiratory Depth Normal 01/07/20 16:12 Respiratory Pattern Normal 01/07/20 16:12 Blood Pressure 165/83 H 01/07/20 16:00 Pulse Oximetry 99 01/07/20 16:00 Oxygen Delivery Method Room Air 01/07/20 16:00 Oxygen Flow Rate 0 07/28/20 16:00 Pain Level 0 01/07/20 16:00 Comment 01/07/20 16:00
--- NOTE | 2020-01-07 16:30 | DI.RAD_ITS ---
EXAM: XR CHEST 2V PA LATERAL CLINICAL HISTORY: Chest pressure TECHNIQUE: 2D digital imaging was performed. COMPARISON: No exams were available for comparison FINDINGS: MEDIASTINUM: Normal. HEART: Normal. PULMONARY VASCULATURE: Normal. LUNGS: Clear. PLEURAL SPACE: No pleural effusion or pneumothorax. BONE:Normal. OTHER FINDINGS:Normal. IMPRESSION: No acute pulmonary findings. DATA REPOSITORY: RADIATION DOSE DELIVERED:
[2020-01-07 16:42] LABS: Abs Immature Grans 0.02 10^3/uL (0.0-0.06); Absolute Basophil Count 0.04 10^3/uL (0.0-0.2); Absolute Eosinophil Count 0.19 10^3/uL (0.0-0.7); Absolute Lymphocyte Count 3.33 10^3/uL (1.2-3.4); Absolute Monocyte Count 0.86 10^3/uL (0.1-0.8); Absolute Neutrophil Count 5.48 10^3/uL (1.2-6.7); Basophils % 0.4; Eosinophils % 1.9; HCT 44.3 % (36.0-46.0); HGB 14.5 g/dL (11.2-15.7); Immature Grans % 0.2; Lymphocytes % 33.6; MCH 27.7 pg (27.0-33.0); MCHC 32.7 % (32.0-36.0); MCV 84.7 fL (80-95); MPV 10.6 fL (8.0-11.0); Monocytes % 8.7; Neutrophils % 55.2; Platelet Count 335 10^3/uL (130-400); RBC 5.23 10^6/uL (3.93-5.22); RDW 13.1 % (11.7-14.6); RDW-SD 40.5 fL; WBC 9.92 10^3/uL (4.4-10.8)
[2020-01-07 17:06] LABS: ALT 22 U/L (14-59); AST 20 U/L (15-37); Albumin 3.7 g/dL (3.4-5.0); Alkaline Phosphatase 81 U/L (46-116); Anion Gap 12.1 mmol/L (3-11); BUN 10 mg/dL (7-18); Bilirubin, Total 0.3 mg/dL (0.2-1.0); CO2 23.9 mmol/L (21.0-32.0); CREATININE 0.63 mg/dL (0.55-1.02); Calcium 8.9 mg/dL (8.5-10.1); Chloride 101 mmol/L (98-107); Glucose 124 mg/dL (74-106); Magnesium 1.9 mg/dL (1.8-2.4); Potassium 4.1 mmol/L (3.5-5.1); Sodium 137 mmol/L (136-145); Total Protein 7.8 g/dL (6.4-8.2)
[2020-01-07 17:08] LABS: Troponin I < 0.05 ng/mL (<0.06)
--- NOTE | 2020-01-07 17:31 | DI.VRAD_ITS ---
PROCEDURE INFORMATION: Exam: XR Chest, 2 Views Exam date and time: 01/07/2020 5:18 PM Age: 44 years old Clinical indication: Chest pain; Pressure TECHNIQUE: Imaging protocol: XR of the chest Views: 2 views. COMPARISON: No relevant prior studies available. FINDINGS: Lungs: Clear lungs. Pleural space: No pneumothorax. No sizable pleural effusion. Heart/Mediastinum: No cardiomegaly. Bones/joints: Unremarkable. IMPRESSION: Clear lungs. Dictated and Authenticated by: Vin Fisher MD. Ordering:LIN Pugh MD
[2020-01-07 17:37] LABS: D-Dimer 367 ng/mlFEU (<500)
--- NOTE | 2020-01-07 18:20 | NUR.NOTE ---
Nursing Note: FAXED REFERRAL TO CARDIOLOGY FOR CHEST PAIN FOLLOW UP 1820 KW 01/07/2020
== END 2020-01-07 18:03 | disposition home or self-care (01) ==
PROVIDERS: Emergency Provider Registered Nurse Emergency
DX: R07.89 Other chest pain (principal); Z82.49 Family history of ischemic heart disease and other diseases of the circulatory system; F17.210 Nicotine dependence, cigarettes, uncomplicated
CPT/HCPCS: 36415; 80053; 81025; 93005; 99285; 71046; 83735; 84484; 85025; 85379; 93010

== ENCOUNTER 2020-09-18 | Emergency (ER) | payer SELFPAY ==
[2020-09-17 23:59] VITALS: BP 147/85; PULSE 84; RESP 16; TEMP 36.7; O2SAT 96
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
== END 2020-09-18 00:54 | disposition home or self-care (01) ==
LOC: ER 01:02
PROVIDERS: Emergency Provider Emergency Medicine
DX: F10.129 Alcohol abuse with intoxication, unspecified (principal)
CPT/HCPCS: 99283; 99282